=== PATIENT | male | born 1945 | race Caucasian/White ===

== ENCOUNTER 2017-05-05 14:27 | Outpatient (CLI) | payer MEDICARE | END 2017-05-05 23:59 | disposition home or self-care (01) | LOC: VAS 14:27 | PROVIDERS: ATTEND Orthopaedic Surgery | DX: M71.22 Synovial cyst of popliteal space [Baker], left knee (principal); M79.605 Pain in left leg; R60.0 Localized edema | CPT/HCPCS: 93971 ==

== ENCOUNTER 2018-04-06 15:41 | Outpatient (CLI) | payer MEDICARE | END 2018-04-06 23:59 | disposition home or self-care (01) | LOC: VAS 15:41 | PROVIDERS: ATTEND Family Medicine | DX: M66.0 Rupture of popliteal cyst (principal); T14.8XXA Other injury of unspecified body region, initial encounter; X58.XXXA Exposure to other specified factors, initial encounter; Y93.89 Activity, other specified; Y92.89 Other specified places as the place of occurrence of the external cause; Y99.8 Other external cause status; M79.662 Pain in left lower leg | CPT/HCPCS: 93971 ==